=== PATIENT | male | born 1955 | race Caucasian/White ===

== ENCOUNTER 2020-11-06 06:05 | Day surgery (SDC) | payer OTHER ==
[~2020-11-06] VITALS: Ht 162.6 cm; Wt 140.0 kg
[2020-11-06] MEDS ORDERED: Aspir 8181 MG PO (07:06)
[2020-11-06] MEDS ORDERED: ROSU5 PO (07:08)
[2020-11-06] MEDS ORDERED: BUPRENO-NALOX1 EAC2 SL (07:09)
[2020-11-06] MEDS ORDERED: Prinivil10 MG PO (07:09)
[2020-11-06] MEDS ORDERED: OMEP20ER PO (07:10)
[2020-11-06] MEDS ORDERED: CYCL10 PO (07:10)
[2020-11-06] MEDS ORDERED: NICODERM CQ TOP (07:11)
--- NOTE | 2020-11-06 10:42 | NUR ---
PT REPOSITIONED FOR COMFORT, REQUESTING PAIN MEDS. STATES THAT HE IS HAVING "CONVULSIONS" AND THEY ARE GOING TO GET WORSE IF HE DOESNT GET SOMETHING FOR PAIN. RIGHT GROIN SITE SOFT NON TENDER WITH NO BLEEDING, LEFT POST TIBIAL SITE ALSO WITH NO SIGNS OF BLEEDING, SOFT. VSS. CALL LIGHT IN REACH.
--- NOTE | 2020-11-06 11:07 | NUR ---
HOB RAISED TO 45 DEGREES, RIGHT GROIN SITE SOFT NON TENDER WITH NO BLEEDING, LEFT POST TIB SITE ALSO SOFT WITH NO BLEEDING. CLEAR TEGADERMS INTACT. PT TOLERATES PO FLUIDS WITH NO DIFFICULTIES. REQUESTING TO GET UP, EDUCATED ON IMPORTANCE OF SLOWLY SITTING HEAD OF BED UP TO TRY AND PREVENT BLEEDING FROM FEMORAL ARTERY. PT VERBALIZED UNDERSTANDING. WILL CONTINUE TO MONITOR.
--- NOTE | 2020-11-06 11:30 | NUR ---
PT UP OUT OF BED, AMBULATES WITH STEADY GAIT. BOTH ARTERIAL SITES APPEAR SOFT NON TENDER WITH NO BLEEDING OR OOZING NOTED. RIGHT GROIN AND LEFT PEDAL. PT CALLS FOR RIDE HOME, GETS DRESSED WITH NO NEEDED ASSISTANCE. IV REMOVED FROM LAC WITH CATH INTACT, PRESSURE DRESSING APPLIED. NO DISTRESS NOTED.
--- NOTE | 2020-11-06 12:01 | NUR ---
PT VERBALIZED UNDERSTANDING OF D/C INSTRUCTIONS. PAPERWORK PROVIDED IN FOLDER. ENCOURAGED TO FOLLOW UP WITH PROVIDER. TAKEN OUT TO PRIVATE VEHICLE VIA W/C NADN. VSS. ARTERIAL SITES STABLE.
== END 2020-11-06 12:00 | disposition home or self-care (01) ==
LOC: MHTC 06:05
DX: I70.213 Atherosclerosis of native arteries of extremities with intermittent claudication, bilateral legs (principal); F17.210 Nicotine dependence, cigarettes, uncomplicated; E78.2 Mixed hyperlipidemia; Z88.5 Allergy status to narcotic agent; Z88.8 Allergy status to other drugs, medicaments and biological substances; Z79.82 Long term (current) use of aspirin
CPT/HCPCS: 37224; 75625; 75716; 76937; 99152; 99153; C1725; C1769; C1887; C1894; C2623; J1644; J1885; J2250; J3010; J7030; J7050; Q9967

== ENCOUNTER 2022-08-29 19:38 | Emergency (ER) | payer OTHER ==
[~2022-08-29] VITALS: Ht 162.6 cm; Wt 56.7 kg
[~2022-08-29 19:38] MED LIST: ASCO500 PO; Alph-E-Mixed400 UNIT; Aspir 8181 MG PO; BUPRENO-NALOX1 EAC2 SL; CYCL10 PO; NICODERM CQ TOP; OMEP20ER PO; Prinivil10 MG PO; ROSU5 PO; XARELTO2.5 M1 PO; Zinc Gluconate100 MG PO
[2022-08-29 20:43] LABS: BASOPHILS ABSOLUTE AUTO 0.03 K/mm3 (0.00-0.23); BASOPHILS PERCENT AUTO 0 % (0-2); EOSINOPHILS ABSOLUTE AUTO 0.27 K/mm3 (0.00-0.68); EOSINOPHILS PERCENT AUTO 4 % (0-6); Hematocrit 25.4 % (37.0-53.0); Hemoglobin 7.8 g/dL (13.5-17.5); IMMATURE GRAN ABSOLUTE AUTO 0.02 K/mm3 (0.00-0.10); IMMATURE GRAN PERCENT AUTO 0 % (0-1); LYMPHOCYTES ABSOLUTE AUTO 1.73 K/mm3 (0.84-5.20); LYMPHOCYTES PERCENT AUTO 25 % (21-46); MONOCYTES ABSOLUTE AUTO 0.56 K/mm3 (0.16-1.47); MONOCYTES PERCENT AUTO 8 % (4-13); Mean Corpuscular HGB 22.4 pg (26.0-34.0); Mean Corpuscular HGB Conc 30.7 g/dL (31.5-36.5); Mean Corpuscular Volume 73 fL (80-100); Mean Platelet Volume 9.5 fL (9.1-12.4); NEUTROPHILS ABSOLUTE AUTO 4.45 K/mm3 (1.96-9.15); NEUTROPHILS PERCENT AUTO 63 % (41-73); Platelet Count 281 K/mm3 (150-400); RDW Coefficient Variation 17.5 % (11.7-14.2); RDW Standard Deviation 45.9 fL (35.1-46.3); Red Blood Cell Count 3.48 M/mm3 (4.30-5.90); White Blood Cell Count 7.06 K/mm3 (4.00-11.30)
[2022-08-29 21:08] LABS: Albumin, Blood 3.6 g/dL (3.4-5.0); Bilirubin, Total 0.2 mg/dL (0.1-1.0); Bun/Creatinine Ratio 15.1 (12.0-20.0); Calcium, Blood 9.3 mg/dL (8.5-10.1); Globulin, Blood 3.5 g/dL (2.2-4.0); Potassium, Blood 3.7 mmol/L (3.5-5.5); Total Protein, Blood 7.1 g/dL (6.4-8.2)
== END 2022-08-29 23:39 | disposition home or self-care (01) ==
LOC: ER 19:38
PROVIDERS: Physician Assistant
DX: T39.011A Poisoning by aspirin, accidental (unintentional), initial encounter (principal); D64.9 Anemia, unspecified; F17.200 Nicotine dependence, unspecified, uncomplicated; Z79.82 Long term (current) use of aspirin; Z79.02 Long term (current) use of antithrombotics/antiplatelets; Z79.899 Other long term (current) drug therapy; Z88.5 Allergy status to narcotic agent; Z88.8 Allergy status to other drugs, medicaments and biological substances
CPT/HCPCS: 36415; 80053; 85025

== ENCOUNTER 2022-10-01 13:38 | Emergency (ER) | payer OTHER ==
[~2022-10-01] VITALS: Ht 162.6 cm; Wt 58.1 kg
[2022-10-01 14:06] LABS: BASOPHILS ABSOLUTE AUTO 0.03 K/mm3 (0.00-0.23); BASOPHILS PERCENT AUTO 0 % (0-2); EOSINOPHILS PERCENT AUTO 2 % (0-6); Hematocrit 24.2 % (37.0-53.0); Hemoglobin 6.9 g/dL (13.5-17.5); IMMATURE GRAN ABSOLUTE AUTO 0.01 K/mm3 (0.00-0.10); IMMATURE GRAN PERCENT AUTO 0 % (0-1); LYMPHOCYTES ABSOLUTE AUTO 1.22 K/mm3 (0.84-5.20); LYMPHOCYTES PERCENT AUTO 18 % (21-46); MONOCYTES ABSOLUTE AUTO 0.54 K/mm3 (0.16-1.47); MONOCYTES PERCENT AUTO 8 % (4-13); Mean Corpuscular HGB 20.8 pg (26.0-34.0); Mean Corpuscular HGB Conc 28.5 g/dL (31.5-36.5); Mean Corpuscular Volume 73 fL (80-100); Mean Platelet Volume 9.8 fL (9.1-12.4); NEUTROPHILS ABSOLUTE AUTO 4.83 K/mm3 (1.96-9.15); NEUTROPHILS PERCENT AUTO 72 % (41-73); Platelet Count 259 K/mm3 (150-400); RDW Coefficient Variation 18.9 % (11.7-14.2); RDW Standard Deviation 49.2 fL (35.1-46.3); Red Blood Cell Count 3.32 M/mm3 (4.30-5.90); White Blood Cell Count 6.73 K/mm3 (4.00-11.30)
[2022-10-01 14:25] LABS: Albumin, Blood 3.3 g/dL (3.4-5.0); Bilirubin, Total 0.3 mg/dL (0.1-1.0); Calcium, Blood 9.4 mg/dL (8.5-10.1); Creatinine, Blood 1.18 mg/dL (0.60-1.20); Globulin, Blood 3.4 g/dL (2.2-4.0); Potassium, Blood 3.6 mmol/L (3.5-5.5); Total Protein, Blood 6.7 g/dL (6.4-8.2)
[2022-10-01] MEDS ORDERED: Crestor20 MG PO (15:01)
[2022-10-01] MEDS ORDERED: PLAVIX75 MG PO (15:15)
[2022-10-01] MEDS ORDERED: Seroquel Xr50 MG PO (15:16)
[2022-10-01] MEDS ORDERED: PANT40 PO (15:17)
[2022-10-01] MEDS ORDERED: TERA5 PO (15:18)
[2022-10-01] MEDS ORDERED: PROP10 PO (15:19)
[2022-10-01 16:16] LABS: Source, Urine Clean Catch
[2022-10-01 16:19] LABS: Appearance, Urine Clear (Clear); Bilirubin, Urine Neg (Neg); Blood, Urine Neg (Neg); Color, Urine Yellow (P-Yellow); Glucose Qualitative, Urine Neg (Neg); Ketones, Urine Neg (Neg); Leukocyte Esterase, Urine Neg (Neg); Nitrite, Urine Neg (Neg); Protein, Urine 3+ (Neg); Urobilinogen, Urine NORM (Normal); pH, Urine 6.5 (5.0-8.0)
[2022-10-01 16:26] LABS: Bacteria Rare /hpf; Red Blood Cells, Urine 0-2 /hpf (0-2); Squamous Epithelial Cells Rare /hpf (Few); White Blood Cells, Urine 0-2 /hpf (0-5)
== END 2022-10-01 22:40 | disposition home or self-care (01) ==
LOC: ER 13:38
PROVIDERS: Emergency Medicine; Physician Assistant
DX: D64.9 Anemia, unspecified (principal); F17.210 Nicotine dependence, cigarettes, uncomplicated; Z79.899 Other long term (current) drug therapy; Z79.02 Long term (current) use of antithrombotics/antiplatelets
CPT/HCPCS: 36415; 36430; 80053; 81001; 85025; 86850; 86900; 86901; 86923; 99283-25; J7030; P9016

== ENCOUNTER 2022-11-21 09:21 | Day surgery (SDC) | payer OTHER ==
[~2022-11-21] VITALS: Ht 162.6 cm; Wt 54.8 kg
[~2022-11-21 09:21] MED LIST changes: +Crestor20 MG PO; +PANT40 PO; +PLAVIX75 MG PO; +PROP10 PO; +Seroquel Xr50 MG PO; +TERA5 PO
[2022-11-21] MEDS ORDERED: PANT20 (09:39)
[2022-11-21] MEDS ORDERED: MAGCIT300 (09:40)
[2022-11-21] MEDS ORDERED: VITAMIN D310 MC4 (09:40)
[2022-11-21] MEDS ORDERED: ASPI81CH (09:41)
== END 2022-11-21 12:15 | disposition home or self-care (01) ==
LOC: ORSCSDS 09:21
PROVIDERS: Internal Medicine Gastroenterology
PROC: 0DBN8ZX Excision of Sigmoid Colon, Via Natural or Artificial Opening Endoscopic, Diagnostic (ICD-10-PCS; principal; 2022-11-21 10:45)
PROC: 0DB98ZX Excision of Duodenum, Via Natural or Artificial Opening Endoscopic, Diagnostic (ICD-10-PCS; principal; 2022-11-21 10:45)
PROC: 0DB78ZX Excision of Stomach, Pylorus, Via Natural or Artificial Opening Endoscopic, Diagnostic (ICD-10-PCS; principal; 2022-11-21 10:45)
DX: D50.9 Iron deficiency anemia, unspecified (principal); R13.10 Dysphagia, unspecified; K63.5 Polyp of colon; R10.13 Epigastric pain; I10 Essential (primary) hypertension; E78.5 Hyperlipidemia, unspecified; F17.210 Nicotine dependence, cigarettes, uncomplicated; K21.9 Gastro-esophageal reflux disease without esophagitis; Z79.899 Other long term (current) drug therapy
CPT/HCPCS: 88305; 88342; J2250; J2704; J7120